=== PATIENT | female | born 1945 | race Caucasian/White ===

== ENCOUNTER → 2018-03-25 | Outpatient (CLI) | payer MEDICARE ==
[~2018-03-25] MED LIST: GADOBUTROL 7.5 MMOL/7.5 ML PFS ONE
== END | disposition home or self-care (01) ==
LOC: CFH 07:20
PROVIDERS: ATTEND Family Medicine
DX: G31.9 Degenerative disease of nervous system, unspecified (principal); I67.82 Cerebral ischemia
CPT/HCPCS: 70553; 82565; A9585

== ENCOUNTER 2018-07-04 18:41 | Inpatient (IN) | payer MEDICARE ==
[~2018-07-04] VITALS: Ht 152.4 cm; Wt 80.8 kg
--- NOTE | 2018-07-04 18:54 | NUR ---
BIB [facility] WITH C/O DARK TARRY STOOLS AND COFFEE GROUND EMESIS. STARTED TODAY. PT STATES SIMILAR EPISODE ABOUT A WEEK AGO. PT WITH HX OF HITAL HERNIA. PT DOES STATE SOME EPIGASTRIC PAIN. MILD AMOUNT OF DISTRESS NOTED. BREATHING REGULAR AND UNLABORED. AWAITING EVAL AND ORDERS. WILL CONTINUE TO MONITOR.
[2018-07-04] MEDS ORDERED: PANTOPRAZOLE 80 MG in SODIUM CHLORIDE 0.9% 50 ML IVPB ONE (19:03)
[2018-07-04] MEDS ORDERED: SODIUM CHLORIDE FLUSH 10ML SYR IVF ONE (19:30)
[2018-07-04] MEDS ORDERED: PLEASE ENTER ALLERGIES MC SCH (19:30)
[2018-07-04] MEDS ORDERED: MAALOX/HYOSCYAMINE/LIDOCAINE 45 ML BTL PO ONE (19:30)
[2018-07-04] MEDS ORDERED: ONDANSETRON 2MG/ML, 2ML IVPush ONE (19:30)
--- NOTE | 2018-07-04 19:31 | NUR ---
IV INFUSION STARTED PER JUL. RIGHTS VERIFIED PRIOR. 3 P'S ADDRESSED.
[2018-07-04] MEDS ORDERED: MAALOX/HYOSCYAMINE/LIDOCAINE 45 ML BTL ONE ×2 (19:32→19:33)
[2018-07-04] MEDS ORDERED: ONDANSETRON 2MG/ML, 2ML ONE (19:32)
[2018-07-04 19:34] LABS: BASOPHILS # (AUTO) 0.03 x10^3/uL (0-0.1); BASOPHILS % (AUTO) 0 % (0-1); EOSINOPHILS # (AUTO) 0.04 x10^3/uL (0-0.4); EOSINOPHILS % (AUTO) 0 % (1-7); LYMPHOCYTES # (AUTO) 0.94 x10^3/uL (1-3.4); LYMPHOCYTES % (AUTO) 9 % (22-44); MD NO; MEAN CORPUSCULAR HEMOGLOBIN 31.5 pg (27.0-34.8); MEAN CORPUSCULAR HGB CONC 33.8 g/dL (32.4-35.8); MEAN PLATELET VOLUME 8.7 fL (7.4-10.4); MONOCYTES # (AUTO) 0.23 x10^3/uL (0.2-0.8); MONOCYTES % (AUTO) 2 % (2-9); NEUTROPHILS # (AUTO) 9.01 x10^3/uL (1.8-6.8); NEUTROPHILS % (AUTO) 88 % (42-75); PLATELET COUNT 321 x10^3/uL (130-400); RED BLOOD COUNT 4.78 x10^6/uL (3.82-5.3)
[2018-07-04 19:40] LABS: INTERNATIONAL NORMALIZED RATIO 0.97 (0.93-1.1); PROTHROMBIN TIME 10.2 Seconds (9.6-11.5)
--- NOTE | 2018-07-04 19:41 | NUR ---
PT MEDICATED PER JUL. GI COCKTAIL HELD AT THIS TIME DUE TO PT FEELING LIKE SHE IS GOING TO VOMIT.
[2018-07-04 19:43] LABS: ALANINE AMINOTRANSFERASE 23 U/L (12-78); ALBUMIN 3.9 g/dL (3.4-5.0); ANION GAP 8 mmol/L (5-15); CHLORIDE 104 mmol/L (98-107); CREATININE 0.67 mg/dL (0.55-1.02)
[2018-07-04 19:45] LABS: ALKALINE PHOSPHATASE 89 U/L (45-117); BILIRUBIN,TOTAL 0.8 mg/dL (0.2-1.0); TOTAL PROTEIN 7.7 g/dL (6.4-8.2)
[2018-07-04] MEDS ORDERED: PANTOPRAZOLE 80 MG in SODIUM CHLORIDE 0.9% 100 ML IV SCH (19:45)
--- NOTE | 2018-07-04 20:15 | NUR ---
POC UPDATED WITH PT AND FAMILY. PT CONTINUES TO BE MILDLY NAUSEATED AT THIS TIME. AWAITING ROOM. WILL CONTINUE TO MONITOR.
--- NOTE | 2018-07-04 20:49 | NUR ---
PROTONIX DRIP REQUESTED FROM [facility] AND INDICATED TO BE SENT TO 4TH FLOOR.
--- NOTE | 2018-07-04 20:49 | NUR ---
REPORT TO LEONARDO SHAH.
[2018-07-04] MEDS: PANTOPRAZOLE 80 MG in SODIUM CHLORIDE 0.9% 100 ML IV SCH (21:00)
[2018-07-04] MEDS: SODIUM CHLORIDE 0.9% 1,000 ML IV SCH (21:29)
[2018-07-04] MEDS ORDERED: ONDANSETRON 2MG/ML, 2ML IVPush PRN (21:30)
[2018-07-04] MEDS ORDERED: ACETAMINOPHEN 325 MG TABLET PO PRN (21:30)
[2018-07-04] MEDS ORDERED: morphine SULFATE 10 MG/ML, 1ML IVPush PRN (21:30)
[2018-07-04] MEDS ORDERED: BISACODYL 10 MG SUPP PR PRN (21:30)
[2018-07-04 21:53] VITALS: BP 130/73
[2018-07-05 01:28] VITALS: BP 140/84
[2018-07-05] MEDS: SODIUM CHLORIDE 0.9% 1,000 ML IV SCH (05:26)
[2018-07-05 07:37] VITALS: BP 130/81
[2018-07-05 07:44] LABS: BASOPHILS # (AUTO) 0.04 x10^3/uL (0-0.1); BASOPHILS % (AUTO) 0 % (0-1); EOSINOPHILS % (AUTO) 0 % (1-7); LYMPHOCYTES % (AUTO) 12 % (22-44); MD NO; MEAN CORPUSCULAR HEMOGLOBIN 30.6 pg (27.0-34.8); MEAN CORPUSCULAR HGB CONC 32.7 g/dL (32.4-35.8); MEAN CORPUSCULAR VOLUME 93.6 fL (80-100); MEAN PLATELET VOLUME 8.3 fL (7.4-10.4); MONOCYTES % (AUTO) 3 % (2-9); NEUTROPHILS # (AUTO) 7.94 x10^3/uL (1.8-6.8); NEUTROPHILS % (AUTO) 85 % (42-75); PLATELET COUNT 325 x10^3/uL (130-400); RED BLOOD COUNT 4.48 x10^6/uL (3.82-5.3); RED CELL DISTRIBUTION WIDTH 15.2 % (9.6-15.2)
[2018-07-05 07:56] LABS: ALANINE AMINOTRANSFERASE 23 U/L (12-78); ALBUMIN 3.7 g/dL (3.4-5.0); ANION GAP 7 mmol/L (5-15); CALCIUM 8.7 mg/dL (8.5-10.1); CHLORIDE 104 mmol/L (98-107); CREATININE 0.78 mg/dL (0.55-1.02)
[2018-07-05 07:59] LABS: ALKALINE PHOSPHATASE 75 U/L (45-117); BILIRUBIN,TOTAL 0.9 mg/dL (0.2-1.0); TOTAL PROTEIN 7.3 g/dL (6.4-8.2)
[2018-07-05] MEDS: PANTOPRAZOLE 80 MG in SODIUM CHLORIDE 0.9% 100 ML IV SCH ×2 (08:23→21:42)
[2018-07-05] MEDS ORDERED: MIDAZOLAM 1 MG/ML, 5ML ONE (10:12)
[2018-07-05] MEDS ORDERED: FENTANYL PF 100 MCG/2ML ONE (10:12)
[2018-07-05 13:54] LABS: HEMOGRAM NOTE RECHECKED
[2018-07-05 14:47] VITALS: BP 113/84
[2018-07-05] MEDS: SODIUM CHLORIDE 0.45% 1,000 ML IV SCH (15:00)
[2018-07-05 18:41] VITALS: BP 138/67
[2018-07-06 02:02] VITALS: BP 108/59
[2018-07-06] MEDS: SODIUM CHLORIDE 0.45% 1,000 ML IV SCH ×2 (02:48→16:14)
[2018-07-06 04:56] LABS: ALBUMIN 3.2 g/dL (3.4-5.0); ANION GAP 5 mmol/L (5-15); CHLORIDE 104 mmol/L (98-107)
[2018-07-06 05:02] LABS: ALANINE AMINOTRANSFERASE 18 U/L (12-78); ALKALINE PHOSPHATASE 57 U/L (45-117); BILIRUBIN,TOTAL 1.4 mg/dL (0.2-1.0); CREATININE 0.56 mg/dL (0.55-1.02); TOTAL PROTEIN 5.9 g/dL (6.4-8.2)
[2018-07-06] MEDS ORDERED: POTASSIUM CHLORIDE 40 MEQ in SODIUM CHLORIDE 0.9% 500 ML IV ONE (07:30)
[2018-07-06 07:41] VITALS: BP 104/67
[2018-07-06] MEDS: PANTOPRAZOLE 80 MG in SODIUM CHLORIDE 0.9% 100 ML IV SCH ×2 (08:51→18:36)
[2018-07-06 13:27] VITALS: BP 108/69
[2018-07-06 19:21] LABS: BASOPHILS # (AUTO) 0.03 x10^3/uL (0-0.1); BASOPHILS % (AUTO) 0 % (0-1); EOSINOPHILS # (AUTO) 0.11 x10^3/uL (0-0.4); EOSINOPHILS % (AUTO) 1 % (1-7); LYMPHOCYTES # (AUTO) 2.65 x10^3/uL (1-3.4); LYMPHOCYTES % (AUTO) 32 % (22-44); MEAN CORPUSCULAR HEMOGLOBIN 31.6 pg (27.0-34.8); MEAN CORPUSCULAR HGB CONC 33.3 g/dL (32.4-35.8); MEAN CORPUSCULAR VOLUME 94.9 fL (80-100); MEAN PLATELET VOLUME 8.4 fL (7.4-10.4); MONOCYTES # (AUTO) 0.44 x10^3/uL (0.2-0.8); MONOCYTES % (AUTO) 5 % (2-9); NEUTROPHILS # (AUTO) 4.98 x10^3/uL (1.8-6.8); NEUTROPHILS % (AUTO) 61 % (42-75); PLATELET COUNT 229 x10^3/uL (130-400); RED BLOOD COUNT 3.13 x10^6/uL (3.82-5.3)
[2018-07-06 19:22] LABS: MD NO
[2018-07-06 21:24] VITALS: BP 115/69
[2018-07-06] MEDS: ATORVASTATIN 40 MG TABLET PO SCH (22:40)
[2018-07-06 22:55] VITALS: BP 127/76
[2018-07-07 01:53] VITALS: BP 104/60
[2018-07-07] MEDS: SODIUM CHLORIDE 0.45% 1,000 ML IV SCH ×2 (03:12→18:29)
[2018-07-07 03:51] LABS: ALANINE AMINOTRANSFERASE 17 U/L (12-78); ALBUMIN 2.8 g/dL (3.4-5.0); ANION GAP 5 mmol/L (5-15); CALCIUM 7.6 mg/dL (8.5-10.1); CHLORIDE 106 mmol/L (98-107); CHOLESTEROL, TOTAL 105 mg/dL (140-239); CREATININE 0.52 mg/dL (0.55-1.02)
[2018-07-07 03:55] LABS: ALKALINE PHOSPHATASE 51 U/L (45-117); BILIRUBIN,TOTAL 1.2 mg/dL (0.2-1.0); CHOL/HDL RATIO 2.5; HDL CHOL % 40 % (28-40); HDL CHOLESTEROL (DIRECT) 42 mg/dL (40-60); LDL CHOLESTEROL,CALCULATED 46 mg/dL (54-169); LDL/HDL RATIO 1.1 (0.5-3.0); TOTAL PROTEIN 5.2 g/dL (6.4-8.2); TRIGLYCERIDES 84 mg/dL (50-200); TROPONIN I 0.199 ng/mL (0.000-0.045); VLDL CHOLESTEROL 17 mg/dL (0-25)
[2018-07-07 04:10] LABS: BASOPHILS # (AUTO) 0.03 x10^3/uL (0-0.1); BASOPHILS % (AUTO) 0 % (0-1); EOSINOPHILS % (AUTO) 3 % (1-7); LYMPHOCYTES # (AUTO) 2.18 x10^3/uL (1-3.4); LYMPHOCYTES % (AUTO) 33 % (22-44); MD NO; MEAN CORPUSCULAR HEMOGLOBIN 31.1 pg (27.0-34.8); MEAN CORPUSCULAR HGB CONC 32.6 g/dL (32.4-35.8); MEAN CORPUSCULAR VOLUME 95.2 fL (80-100); MEAN PLATELET VOLUME 8.4 fL (7.4-10.4); MONOCYTES # (AUTO) 0.45 x10^3/uL (0.2-0.8); MONOCYTES % (AUTO) 7 % (2-9); NEUTROPHILS # (AUTO) 3.72 x10^3/uL (1.8-6.8); NEUTROPHILS % (AUTO) 57 % (42-75); PLATELET COUNT 216 x10^3/uL (130-400); RED BLOOD COUNT 2.99 x10^6/uL (3.82-5.3); RED CELL DISTRIBUTION WIDTH 14.4 % (9.6-15.2)
[2018-07-07 08:00] VITALS: BP 114/62
[2018-07-07 09:54] LABS: TROPONIN I 0.168 ng/mL (0.000-0.045)
[2018-07-07 14:21] VITALS: BP 118/67
[2018-07-07] MEDS: PANTOPRAZOLE 80 MG in SODIUM CHLORIDE 0.9% 100 ML IV SCH (18:26)
[2018-07-07 18:53] VITALS: BP 153/83
[2018-07-07] MEDS: ATORVASTATIN 40 MG TABLET PO SCH (20:45)
[2018-07-08 00:27] VITALS: BP 135/73
[2018-07-08] MEDS: PANTOPRAZOLE 80 MG in SODIUM CHLORIDE 0.9% 100 ML IV SCH ×2 (03:55→14:02)
[2018-07-08 04:39] LABS: BASOPHILS # (AUTO) 0.02 x10^3/uL (0-0.1); BASOPHILS % (AUTO) 0 % (0-1); EOSINOPHILS # (AUTO) 0.12 x10^3/uL (0-0.4); EOSINOPHILS % (AUTO) 2 % (1-7); LYMPHOCYTES # (AUTO) 1.53 x10^3/uL (1-3.4); LYMPHOCYTES % (AUTO) 27 % (22-44); MD NO; MEAN CORPUSCULAR HEMOGLOBIN 31.7 pg (27.0-34.8); MEAN CORPUSCULAR HGB CONC 33.7 g/dL (32.4-35.8); MEAN CORPUSCULAR VOLUME 94.1 fL (80-100); MEAN PLATELET VOLUME 8.4 fL (7.4-10.4); MONOCYTES # (AUTO) 0.38 x10^3/uL (0.2-0.8); MONOCYTES % (AUTO) 7 % (2-9); NEUTROPHILS % (AUTO) 64 % (42-75); PLATELET COUNT 221 x10^3/uL (130-400); RED BLOOD COUNT 3.07 x10^6/uL (3.82-5.3); RED CELL DISTRIBUTION WIDTH 14.3 % (9.6-15.2)
[2018-07-08 04:40] LABS: ALBUMIN 2.6 g/dL (3.4-5.0); ANION GAP 2 mmol/L (5-15); CALCIUM 7.4 mg/dL (8.5-10.1); CHLORIDE 106 mmol/L (98-107)
[2018-07-08 04:43] LABS: ALANINE AMINOTRANSFERASE 18 U/L (12-78); ALKALINE PHOSPHATASE 55 U/L (45-117); BILIRUBIN,TOTAL 1.5 mg/dL (0.2-1.0); CREATININE 0.44 mg/dL (0.55-1.02); TOTAL PROTEIN 5.1 g/dL (6.4-8.2)
[2018-07-08] MEDS: SODIUM CHLORIDE 0.45% 1,000 ML IV SCH (08:12)
[2018-07-08] MEDS ORDERED: REGADENOSON 0.4 MG/5 ML SYRINGE ONE (09:19)
[2018-07-08 11:11] VITALS: BP 134/78
[2018-07-08] MEDS: POTASSIUM CHLORIDE 20 MEQ TAB.ER.PRT PO SCH ×2 (11:16→17:04)
[2018-07-08 12:56] VITALS: BP 113/62
[2018-07-08] MEDS: CARVEDILOL 3.125 MG TABLET PO SCH (17:05)
[2018-07-08 18:56] VITALS: BP 115/75
[2018-07-08] MEDS: OMEPRAZOLE 20 MG CAPSULE.DR PO SCH (19:54)
[2018-07-08] MEDS: ATORVASTATIN 40 MG TABLET PO SCH (19:54)
[2018-07-09 01:17] VITALS: BP 127/84
[2018-07-09 04:15] LABS: BASOPHILS # (AUTO) 0.02 x10^3/uL (0-0.1); BASOPHILS % (AUTO) 0 % (0-1); EOSINOPHILS # (AUTO) 0.13 x10^3/uL (0-0.4); EOSINOPHILS % (AUTO) 2 % (1-7); LYMPHOCYTES # (AUTO) 1.73 x10^3/uL (1-3.4); LYMPHOCYTES % (AUTO) 30 % (22-44); MD NO; MEAN CORPUSCULAR HEMOGLOBIN 30.8 pg (27.0-34.8); MEAN CORPUSCULAR HGB CONC 32.3 g/dL (32.4-35.8); MEAN CORPUSCULAR VOLUME 95.2 fL (80-100); MEAN PLATELET VOLUME 8.4 fL (7.4-10.4); MONOCYTES # (AUTO) 0.44 x10^3/uL (0.2-0.8); MONOCYTES % (AUTO) 8 % (2-9); NEUTROPHILS # (AUTO) 3.54 x10^3/uL (1.8-6.8); NEUTROPHILS % (AUTO) 61 % (42-75); PLATELET COUNT 253 x10^3/uL (130-400); RED BLOOD COUNT 3.28 x10^6/uL (3.82-5.3); RED CELL DISTRIBUTION WIDTH 14.4 % (9.6-15.2)
[2018-07-09 04:21] LABS: CALCIUM 8.2 mg/dL (8.5-10.1); CHLORIDE 107 mmol/L (98-107)
[2018-07-09 04:27] LABS: ALANINE AMINOTRANSFERASE 19 U/L (12-78); ALBUMIN 2.8 g/dL (3.4-5.0); ALKALINE PHOSPHATASE 56 U/L (45-117); ANION GAP 2 mmol/L (5-15); BILIRUBIN,TOTAL 1.2 mg/dL (0.2-1.0); CREATININE 0.56 mg/dL (0.55-1.02); TOTAL PROTEIN 5.5 g/dL (6.4-8.2)
[2018-07-09 05:50] VITALS: BP 124/68
[2018-07-09] MEDS: CARVEDILOL 3.125 MG TABLET PO SCH (05:53)
[2018-07-09] MEDS: OMEPRAZOLE 20 MG CAPSULE.DR PO SCH (06:02)
[2018-07-09] MEDS: POTASSIUM CHLORIDE 20 MEQ TAB.ER.PRT PO SCH (08:25)
[2018-07-09] MEDS ORDERED: LISINOPRIL 5 MG TABLET PO SCH (09:00)
[2018-07-09] MEDS ORDERED: LISI5TAB7 PO (11:59)
[2018-07-09] MEDS ORDERED: ATOR40TA78 PO (11:59)
[2018-07-09] MEDS ORDERED: CARV3.1212 PO (11:59)
[2018-07-09] MEDS ORDERED: OMEP-110 PO (11:59)
[2018-07-09] MEDS ORDERED: ASPI81TA45 PO (12:02)
== END 2018-07-09 15:34 | disposition home or self-care (01) | DRG 377 ==
LOC: ED 19:36 → EDIP 20:09 → 4NOR 21:10 → 4WST 07-05 08:42 → DCLOUNGE 07-09 14:55
PROVIDERS: ADMIT Internal Medicine; ATTEND Hospitalist
PROC: 0DJ08ZZ Inspection of Upper Intestinal Tract, Via Natural or Artificial Opening Endoscopic (ICD-10-PCS; principal; 2018-07-05 10:30)
DX: K92.2 Gastrointestinal hemorrhage, unspecified (principal); J96.21 Acute and chronic respiratory failure with hypoxia; E87.0 Hyperosmolality and hypernatremia; G45.9 Transient cerebral ischemic attack, unspecified; D64.9 Anemia, unspecified; E11.9 Type 2 diabetes mellitus without complications; E86.0 Dehydration; E87.6 Hypokalemia; E88.09 Other disorders of plasma-protein metabolism, not elsewhere classified; R47.81 Slurred speech; J45.909 Unspecified asthma, uncomplicated; I10 Essential (primary) hypertension; K44.9 Diaphragmatic hernia without obstruction or gangrene; Z86.73 Personal history of transient ischemic attack (TIA), and cerebral infarction without residual deficits; Z90.710 Acquired absence of both cervix and uterus; Z87.891 Personal history of nicotine dependence; Z88.0 Allergy status to penicillin
CPT/HCPCS: 0399T; 36415; 70450; 70551; 71250; 74176; 78452; 80053; 80061; 82962; 83605; 83690; 84484; 85014; 85018; 85025; 85610; 86677; 86850; 86900; 93005; 93017; 93306; 93880; 96365; 99152; 99153; 99285; G0378; J2250; J2405; J2785; J3010; J3480; A9502; C9113; C9898; J7030; J7040

== ENCOUNTER 2018-08-07 19:06 | Emergency (ER) | payer MEDICARE ==
[~2018-08-07] VITALS: Ht 152.4 cm; Wt 152.0 kg
[~2018-08-07 19:06] MED LIST changes: +ASPI81TA45 PO; +ATOR40TA78 PO; +CARV3.1212 PO; -GADOBUTROL 7.5 MMOL/7.5 ML PFS ONE; +LISI5TAB7 PO; +OMEP-110 PO
--- NOTE | 2018-08-07 19:32 | NUR ---
PT ARRIVED WITH SON. PER SON PT WENT OUT TO EAT FOR DINNER 3 DAYS AGO. HAS BEEN FEELING NAUSEATED SINCE WITH VOMITING AND FATIGUE. HAS BEEN ABLE TO KEEP LIQUIDS AND SOFT FOODS DOWN. FENG ATE 2 PIECES OF FRUIT AND IS NOW HAVING PAIN TO HER UPPER ABDOMEN WHERE HER HERNIA IS.
[2018-08-07] MEDS ORDERED: ONDANSETRON 2MG/ML, 2ML IVPush ONE (20:00)
[2018-08-07] MEDS ORDERED: ONDANSETRON 2MG/ML, 2ML ONE (20:03)
--- NOTE | 2018-08-07 20:08 | NUR ---
REPORT RECEIVED FROM LEONARDO RIZO. ALL MONITORS PLACED, PT WEARING OXYGEN AT 2L/MIN VIA NC. PT MEDICATED PER EMAR, TOLERATED WELL. CALL LIGHT IN REACH. AWAITING LAB AND XRAY RESULTS AT THIS TIME.
[2018-08-07 20:12] LABS: BASOPHILS # (AUTO) 0.03 x10^3/uL (0-0.1); BASOPHILS % (AUTO) 1 % (0-1); EOSINOPHILS # (AUTO) 0.17 x10^3/uL (0-0.4); EOSINOPHILS % (AUTO) 2 % (1-7); LYMPHOCYTES # (AUTO) 1.72 x10^3/uL (1-3.4); LYMPHOCYTES % (AUTO) 24 % (22-44); MD NO; MEAN CORPUSCULAR HEMOGLOBIN 29.8 pg (27.0-34.8); MEAN CORPUSCULAR VOLUME 90.3 fL (80-100); MEAN PLATELET VOLUME 8.8 fL (7.4-10.4); MONOCYTES # (AUTO) 0.57 x10^3/uL (0.2-0.8); MONOCYTES % (AUTO) 8 % (2-9); NEUTROPHILS # (AUTO) 4.67 x10^3/uL (1.8-6.8); NEUTROPHILS % (AUTO) 65 % (42-75); PLATELET COUNT 302 x10^3/uL (130-400); RED BLOOD COUNT 4.41 x10^6/uL (3.82-5.3); RED CELL DISTRIBUTION WIDTH 14.1 % (9.6-15.2)
[2018-08-07 20:19] LABS: INTERNATIONAL NORMALIZED RATIO 0.96 (0.93-1.1); PROTHROMBIN TIME 10.1 Seconds (9.6-11.5)
[2018-08-07 20:21] LABS: ALANINE AMINOTRANSFERASE 19 U/L (12-78); ALBUMIN 3.6 g/dL (3.4-5.0); ANION GAP 7 mmol/L (5-15); CALCIUM 8.8 mg/dL (8.5-10.1); CHLORIDE 104 mmol/L (98-107); CREATININE 0.71 mg/dL (0.55-1.02)
[2018-08-07 20:25] LABS: ALKALINE PHOSPHATASE 90 U/L (45-117); BILIRUBIN,TOTAL 0.8 mg/dL (0.2-1.0); TOTAL PROTEIN 7.4 g/dL (6.4-8.2); TROPONIN I < 0.015 ng/mL (0.000-0.045)
[2018-08-07 21:28] VITALS: BP 102/72
--- NOTE | 2018-08-07 21:45 | NUR ---
oxygen turned off, pt initially sat's >90% on room air but after several minutes on room air pt's spo2 dropped to 82%. pt denies sob. COURTNEY Rogers notified. pt does not have home oxygen but states her PCP has noted low oxygen levels in the past. Pt to have ambulatory spo2 test.
--- NOTE | 2018-08-07 21:53 | NUR ---
PT BEDSIDE REPORT FROM ISAIAH RN. THIS RN TO ASSUME CARE OF PT. THIS RN TO ROAD TEST AND MONITOR O2 SATURATION.
--- NOTE | 2018-08-07 21:54 | NUR ---
report given to LEONARDO Forman at bedside.
--- NOTE | 2018-08-07 22:20 | NUR ---
PT SUCCESSFUL ON ROAD TEST. ACHIEVED 91-93% SAT ON RA. PA ON BOARD. PT D/C AT THIS TIME.
== END 2018-08-07 22:22 | disposition home or self-care (01) ==
LOC: ED 21:53
DX: K59.00 Constipation, unspecified (principal); R53.83 Other fatigue; E11.9 Type 2 diabetes mellitus without complications; I10 Essential (primary) hypertension
CPT/HCPCS: 36415; 74022; 80053; 83690; 83880; 84484; 85025; 85610; 85730; 86850; 86900; 93005; 96374; 99284; J2405

== ENCOUNTER 2018-08-08 08:32 | Inpatient (IN) | payer MEDICARE ==
[~2018-08-08] VITALS: Ht 152.4 cm; Wt 73.0 kg
[2018-08-08] MEDS ORDERED: PANTOPRAZOLE 80 MG in SODIUM CHLORIDE 0.9% 50 ML IVPB ONE (09:02)
[2018-08-08 09:29] LABS: MEAN CORPUSCULAR HEMOGLOBIN 28.8 pg (27.0-34.8); MEAN CORPUSCULAR HGB CONC 31.8 g/dL (32.4-35.8); MEAN CORPUSCULAR VOLUME 90.5 fL (80-100); MEAN PLATELET VOLUME 8.9 fL (7.4-10.4); PLATELET COUNT 334 x10^3/uL (130-400); RED BLOOD COUNT 4.43 x10^6/uL (3.82-5.3); RED CELL DISTRIBUTION WIDTH 14.2 % (9.6-15.2)
[2018-08-08] MEDS ORDERED: SODIUM CHLORIDE FLUSH 10ML SYR IVF ONE (09:30)
[2018-08-08] MEDS ORDERED: SODIUM CHLORIDE 0.9% 1,000ML IVBOLUS ONE (09:30)
[2018-08-08] MEDS ORDERED: ONDANSETRON 2MG/ML, 2ML IVPush ONE (09:30)
--- NOTE | 2018-08-08 09:30 | NUR ---
CT WAITING ON LABS ORDERED TODAY.
--- NOTE | 2018-08-08 09:30 | NUR ---
Pt RA SPO2 of 84%. Checked at multiple different sites with good waveform. Denies SOB, placed on 2 liters oxygen & now is 95%, Dr. Quinteros informed.
[2018-08-08 09:36] LABS: INTERNATIONAL NORMALIZED RATIO 1.01 (0.93-1.1); PROTHROMBIN TIME 10.6 Seconds (9.6-11.5)
[2018-08-08 09:37] LABS: ALBUMIN 3.7 g/dL (3.4-5.0); ANION GAP 8 mmol/L (5-15); CALCIUM 9.5 mg/dL (8.5-10.1); CHLORIDE 100 mmol/L (98-107)
[2018-08-08 09:40] LABS: ALANINE AMINOTRANSFERASE 16 U/L (12-78); ALKALINE PHOSPHATASE 90 U/L (45-117); BILIRUBIN,TOTAL 0.8 mg/dL (0.2-1.0); TOTAL PROTEIN 7.5 g/dL (6.4-8.2)
[2018-08-08] MEDS ORDERED: ONDANSETRON 2MG/ML, 2ML ONE (09:47)
[2018-08-08] MEDS ORDERED: OMNIPAQUE 350 MG/ML, 100ML BOTTLE ONE (10:09)
[2018-08-08 10:10] LABS: TROPONIN I < 0.015 ng/mL (0.000-0.045)
[2018-08-08 10:27] LABS: BASOPHILS # (AUTO) 0.04 x10^3/uL (0-0.1); BASOPHILS % (AUTO) 0 % (0-1); EOSINOPHILS % (AUTO) 0 % (1-7); LYMPHOCYTES # (AUTO) 1.74 x10^3/uL (1-3.4); LYMPHOCYTES % (AUTO) 13 % (22-44); MD NO; MONOCYTES # (AUTO) 0.66 x10^3/uL (0.2-0.8); MONOCYTES % (AUTO) 5 % (2-9); NEUTROPHILS # (AUTO) 10.92 x10^3/uL (1.8-6.8); NEUTROPHILS % (AUTO) 82 % (42-75)
[2018-08-08] MEDS ORDERED: PHENYLEPHRINE 10 MG/ML ONE (10:48)
[2018-08-08] MEDS ORDERED: DEXAMETHASONE 4 MG/ML, 1ML ONE (10:48)
[2018-08-08] MEDS: PANTOPRAZOLE 80 MG in SODIUM CHLORIDE 0.9% 100 ML IV SCH ×2 (10:53→19:02)
--- NOTE | 2018-08-08 10:55 | NUR ---
+Nausea. Medicated as per emar with Zofran.
--- NOTE | 2018-08-08 11:24 | NUR ---
Nausea not improved, no vomiting. OOB to restroom but forgot and did not void in urine cup provided.
--- NOTE | 2018-08-08 11:40 | NUR ---
RA SPO2 checked. Pt 77% on RA with good waveform while denying any CP or SOB. Dr. Quinteros updated & POC to admit pt. D/W pt & agrees to have straight cath UA.
[2018-08-08] MEDS ORDERED: METOCLOPRAMIDE 5 MG/ML, 2ML IVPush ONE (12:00)
--- NOTE | 2018-08-08 12:04 | NUR ---
Pt TBADM for bowel obstruction. Remains NPO & is aware of POC. Son called & updated.
--- NOTE | 2018-08-08 12:54 | NUR ---
Report to [facility] pre-op, pt scheduled for surgery at 1315. Pt & son informed. Pt undressed completely except for gown with jewelry given to son to take home. Hospitalist @ [facility]. Pt pain free, nausea improved, remains NPO. VSS on 2 liters oxygen.
[2018-08-08] MEDS ORDERED: FENTANYL PF 250 MCG/5ML ONE (13:04)
[2018-08-08] MEDS ORDERED: MIDAZOLAM 1 MG/ML, 2ML ONE (13:04)
[2018-08-08] MEDS ORDERED: PROMETHAZINE 25 MG/ML, 1ML ONE (13:09)
[2018-08-08] MEDS ORDERED: KETAMINE 10 MG/ML, 20ML ONE (13:11)
[2018-08-08] MEDS ORDERED: DEXMEDETOMIDINE 200 MCG/2 ML ONE (13:11)
[2018-08-08] MEDS ORDERED: GLUCAGON 1 MG IM PRN (13:30)
[2018-08-08] MEDS ORDERED: DEXTROSE 50%, 50ML SYRINGE IVPush PRN (13:30)
[2018-08-08] MEDS ORDERED: morphine SULFATE 10 MG/ML, 1ML IVPush PRN (13:30)
[2018-08-08] MEDS ORDERED: hydrALAzine 20 MG/ML, 1ML IVPush PRN (13:30)
[2018-08-08] MEDS ORDERED: ENALAPRILAT 1.25 MG/ML, 2ML IVPush PRN (13:30)
[2018-08-08] MEDS ORDERED: ACETAMINOPHEN 325 MG TABLET PO PRN (13:30)
[2018-08-08] MEDS ORDERED: DEXTROSE 4 GM TAB.CHEW PO PRN (13:30)
[2018-08-08 14:00] LABS: FREE T4 (FREE THYROXINE) 1.31 ng/dL (0.76-1.46); THYROID STIMULATING HORMONE 1.94 mIU/L (0.358-3.740)
[2018-08-08 14:07] LABS: HEMOGLOBIN A1C 6.6 % (4.2-6.3)
[2018-08-08] MEDS ORDERED: MEPERIDINE/PF 100 MG/ML ONE (14:19)
[2018-08-08] MEDS ORDERED: SUCCINYLCHOLINE 20 MG/ML, 10ML ONE (14:20)
[2018-08-08] MEDS ORDERED: ROCURONIUM 10MG/ML,5ML ONE (14:20)
[2018-08-08] MEDS ORDERED: CEFOTETAN PMX 2GM/50ML 50 ML ONE (14:20)
[2018-08-08] MEDS ORDERED: PROPOFOL 10 MG/ML, 20ML ONE (14:20)
[2018-08-08] MEDS ORDERED: ALBUTEROL/IPRATROPIUM 2.5MG/0.5MG, 3 ML NPPB PRN (14:30)
[2018-08-08] MEDS ORDERED: PROMETHAZINE 25 MG/ML, 1ML IV PRN (14:30)
[2018-08-08] MEDS ORDERED: hydrALAzine 20 MG/ML, 1ML IV PRN (14:30)
[2018-08-08] MEDS ORDERED: MEPERIDINE/PF 25MG/0.5ML IVPush PRN (14:30)
[2018-08-08] MEDS ORDERED: OXYcodone 5 MG/5 ML ORAL.SOL UDC PO PRN (14:30)
[2018-08-08] MEDS ORDERED: HALOPERIDOL 5 MG/ML IV PRN (14:30)
[2018-08-08] MEDS ORDERED: SUGAMMADEX 200 MG/2 ML IVPush ONE (15:38)
[2018-08-08] MEDS: INSULIN LISPRO 100 UNITS/ML, PEN SQ-INSULIN SCH ×3 (16:00→21:08)
[2018-08-08] MEDS ORDERED: FENTANYL PF 100 MCG/2ML ONE (16:57)
[2018-08-08] MEDS ORDERED: HYDROmorphone 2 MG/ML, 1ML ONE (16:57)
[2018-08-08] MEDS: HYDROmorphone 2 MG/ML, 1ML IVPush PRN ×3 (17:05→17:52)
[2018-08-08] MEDS: FENTANYL PF 100 MCG/2ML IV PRN ×2 (17:05→17:49)
[2018-08-08] MEDS ORDERED: HALOPERIDOL 5 MG/ML ONE (17:18)
[2018-08-08] MEDS: SODIUM CHLORIDE 0.9% 1,000 ML IV SCH ×2 (21:10→23:06)
[2018-08-08] MEDS: ATORVASTATIN 40 MG TABLET PO SCH (21:27)
[2018-08-08] MEDS: PANTOPRAZOLE 40 MG IV IVPush SCH (21:27)
[2018-08-08] MEDS: CARVEDILOL 3.125 MG TABLET PO SCH (21:27)
[2018-08-08] MEDS: FAMOTIDINE 20 MG/2 ML IVPush SCH (21:30)
[2018-08-08] MEDS ORDERED: ONDANSETRON 2MG/ML, 2ML IV PRN (21:30)
[2018-08-08] MEDS ORDERED: MORPHINE SULFATE 4 MG/ML, 1ML IV PRN (21:30)
[2018-08-08] MEDS ORDERED: D5%-0.45NACL+KCL 20MEQ 1,000 ML IV SCH (21:30)
[2018-08-08] MEDS: SODIUM CHLORIDE FLUSH 10ML SYR IVF SCH (22:38)
[2018-08-09 01:11] VITALS: BP 119/67
[2018-08-09 02:21] LABS: MICROSCOPIC AUTO
[2018-08-09 02:22] LABS: CULTURE INDICATED? NO
[2018-08-09] MEDS: SODIUM CHLORIDE 0.9% 1,000 ML IV SCH (04:02)
[2018-08-09] MEDS: CARVEDILOL 3.125 MG TABLET PO SCH ×2 (05:33→17:22)
[2018-08-09 06:02] LABS: BASOPHILS # (AUTO) 0.02 x10^3/uL (0-0.1); BASOPHILS % (AUTO) 0 % (0-1); EOSINOPHILS % (AUTO) 0 % (1-7); LYMPHOCYTES # (AUTO) 1.21 x10^3/uL (1-3.4); LYMPHOCYTES % (AUTO) 8 % (22-44); MD NO; MEAN CORPUSCULAR HEMOGLOBIN 30.1 pg (27.0-34.8); MEAN CORPUSCULAR HGB CONC 32.9 g/dL (32.4-35.8); MEAN CORPUSCULAR VOLUME 91.4 fL (80-100); MEAN PLATELET VOLUME 8.9 fL (7.4-10.4); MONOCYTES % (AUTO) 6 % (2-9); NEUTROPHILS % (AUTO) 86 % (42-75); PLATELET COUNT 308 x10^3/uL (130-400); RED BLOOD COUNT 3.95 x10^6/uL (3.82-5.3); RED CELL DISTRIBUTION WIDTH 14.4 % (9.6-15.2)
[2018-08-09 06:17] LABS: CHLORIDE 107 mmol/L (98-107)
[2018-08-09 06:30] LABS: ALANINE AMINOTRANSFERASE 57 U/L (12-78); ALBUMIN 2.9 g/dL (3.4-5.0); ALKALINE PHOSPHATASE 70 U/L (45-117); ANION GAP 5 mmol/L (5-15); BILIRUBIN,TOTAL 0.9 mg/dL (0.2-1.0); CHOLESTEROL, TOTAL 113 mg/dL (140-239); CREATININE 0.81 mg/dL (0.55-1.02); HDL CHOL % 50 % (28-40); HDL CHOLESTEROL (DIRECT) 56 mg/dL (40-60); LDL CHOLESTEROL,CALCULATED 47 mg/dL (54-169); LDL/HDL RATIO 0.8 (0.5-3.0); TOTAL PROTEIN 6.3 g/dL (6.4-8.2); TRIGLYCERIDES 50 mg/dL (50-200); VLDL CHOLESTEROL 10 mg/dL (0-25)
[2018-08-09 06:53] VITALS: BP 144/84
[2018-08-09] MEDS: INSULIN LISPRO 100 UNITS/ML, PEN SQ-INSULIN SCH ×4 (07:00→19:42)
[2018-08-09] MEDS: FAMOTIDINE 20 MG/2 ML IVPush SCH (08:12)
[2018-08-09] MEDS: PANTOPRAZOLE 40 MG IV IVPush SCH ×2 (09:48→21:16)
[2018-08-09] MEDS: LISINOPRIL 5 MG TABLET PO SCH (09:48)
[2018-08-09] MEDS: SODIUM CHLORIDE FLUSH 10ML SYR IVF SCH ×2 (09:48→21:16)
[2018-08-09] MEDS: POTASSIUM CHLORIDE 20 MEQ in SODIUM CHLORIDE 0.45% 1,000 ML IV SCH (12:31)
[2018-08-09] MEDS: ENOXAPARIN 30 MG/0.3 ML SQ SCH (12:33)
[2018-08-09 13:09] VITALS: BP 106/63
[2018-08-09 17:22] VITALS: BP 125/77
[2018-08-09 19:17] VITALS: BP 114/68
[2018-08-09] MEDS: ATORVASTATIN 40 MG TABLET PO SCH (21:00)
[2018-08-10 00:02] VITALS: BP 131/72
[2018-08-10] MEDS: POTASSIUM CHLORIDE 20 MEQ in SODIUM CHLORIDE 0.45% 1,000 ML IV SCH ×3 (00:18→21:53)
[2018-08-10] MEDS: ENOXAPARIN 30 MG/0.3 ML SQ SCH ×2 (00:20→12:51)
[2018-08-10 06:14] VITALS: BP 122/73
[2018-08-10] MEDS: CARVEDILOL 3.125 MG TABLET PO SCH ×2 (06:16→18:31)
[2018-08-10 07:25] LABS: ANION GAP 4 mmol/L (5-15); CALCIUM 8.3 mg/dL (8.5-10.1); CHLORIDE 105 mmol/L (98-107); CREATININE 0.47 mg/dL (0.55-1.02)
[2018-08-10 07:32] LABS: MEAN CORPUSCULAR HGB CONC 31.8 g/dL (32.4-35.8); MEAN CORPUSCULAR VOLUME 91.3 fL (80-100); PLATELET COUNT 266 x10^3/uL (130-400); RED BLOOD COUNT 3.36 x10^6/uL (3.82-5.3); RED CELL DISTRIBUTION WIDTH 14.4 % (9.6-15.2)
[2018-08-10 07:50] LABS: BASOPHILS # (AUTO) 0.03 x10^3/uL (0-0.1); BASOPHILS % (AUTO) 0 % (0-1); EOSINOPHILS # (AUTO) 0.12 x10^3/uL (0-0.4); EOSINOPHILS % (AUTO) 1 % (1-7); LYMPHOCYTES % (AUTO) 13 % (22-44); MD SCAN; MONOCYTES # (AUTO) 0.65 x10^3/uL (0.2-0.8); MONOCYTES % (AUTO) 6 % (2-9); NEUTROPHILS # (AUTO) 8.96 x10^3/uL (1.8-6.8); NEUTROPHILS % (AUTO) 80 % (42-75)
[2018-08-10 08:01] VITALS: BP 138/82
[2018-08-10] MEDS: INSULIN LISPRO 100 UNITS/ML, PEN SQ-INSULIN SCH ×4 (08:37→20:05)
[2018-08-10] MEDS: PANTOPRAZOLE 40 MG IV IVPush SCH ×2 (12:15→20:20)
[2018-08-10] MEDS: SODIUM CHLORIDE FLUSH 10ML SYR IVF SCH ×2 (12:15→20:20)
[2018-08-10] MEDS: LISINOPRIL 5 MG TABLET PO SCH (12:16)
[2018-08-10 14:24] VITALS: BP 134/79
[2018-08-10] MEDS ORDERED: OMNIPAQUE 350 MG/ML, 100ML BOTTLE ONE (15:26)
[2018-08-10] MEDS: ALBUTEROL SULFATE 2.5 MG/3 ML NPPB PRN (16:14)
[2018-08-10 19:26] VITALS: BP 122/74
[2018-08-10] MEDS: ATORVASTATIN 40 MG TABLET PO SCH (20:20)
[2018-08-11 00:52] VITALS: BP 108/68
[2018-08-11] MEDS: ENOXAPARIN 30 MG/0.3 ML SQ SCH ×2 (02:10→13:48)
[2018-08-11 05:50] LABS: ALBUMIN 2.5 g/dL (3.4-5.0); ANION GAP 6 mmol/L (5-15); CALCIUM 8.3 mg/dL (8.5-10.1); CHLORIDE 101 mmol/L (98-107)
[2018-08-11 05:53] LABS: CREATININE 0.43 mg/dL (0.55-1.02)
[2018-08-11 06:59] VITALS: BP 146/77
[2018-08-11] MEDS: INSULIN LISPRO 100 UNITS/ML, PEN SQ-INSULIN SCH ×4 (09:07→20:58)
[2018-08-11] MEDS: ALBUTEROL SULFATE 2.5 MG/3 ML NPPB PRN ×2 (10:16→15:44)
[2018-08-11] MEDS: PANTOPRAZOLE 40 MG IV IVPush SCH ×2 (10:48→20:58)
[2018-08-11] MEDS: methylPREDNISolone SOD SUCC 40 MG/ML IV SCH ×2 (10:48→18:03)
[2018-08-11] MEDS: LISINOPRIL 5 MG TABLET PO SCH (10:49)
[2018-08-11] MEDS: CARVEDILOL 3.125 MG TABLET PO SCH ×2 (10:49→18:04)
[2018-08-11] MEDS: SODIUM CHLORIDE FLUSH 10ML SYR IVF SCH ×2 (10:51→20:59)
[2018-08-11 13:51] VITALS: BP 118/63
[2018-08-11 14:31] VITALS: BP 114/75
[2018-08-11] MEDS: ATORVASTATIN 40 MG TABLET PO SCH (20:57)
[2018-08-11 21:30] VITALS: BP 139/76
[2018-08-12] MEDS: methylPREDNISolone SOD SUCC 40 MG/ML IV SCH ×3 (00:43→17:30)
[2018-08-12] MEDS: ENOXAPARIN 30 MG/0.3 ML SQ SCH ×3 (00:44→23:59)
[2018-08-12] MEDS: ALBUTEROL SULFATE 2.5 MG/3 ML NPPB PRN ×2 (02:32→11:02)
[2018-08-12 02:35] VITALS: BP 126/77
[2018-08-12 06:28] LABS: BASOPHILS # (AUTO) 0.01 x10^3/uL (0-0.1); BASOPHILS % (AUTO) 0 % (0-1); EOSINOPHILS % (AUTO) 0 % (1-7); LYMPHOCYTES # (AUTO) 0.59 x10^3/uL (1-3.4); LYMPHOCYTES % (AUTO) 10 % (22-44); MD NO; MEAN CORPUSCULAR HEMOGLOBIN 29.8 pg (27.0-34.8); MEAN CORPUSCULAR HGB CONC 32.7 g/dL (32.4-35.8); MEAN CORPUSCULAR VOLUME 91.2 fL (80-100); MEAN PLATELET VOLUME 8.7 fL (7.4-10.4); MONOCYTES # (AUTO) 0.07 x10^3/uL (0.2-0.8); MONOCYTES % (AUTO) 1 % (2-9); NEUTROPHILS # (AUTO) 5.15 x10^3/uL (1.8-6.8); NEUTROPHILS % (AUTO) 89 % (42-75); PLATELET COUNT 311 x10^3/uL (130-400); RED BLOOD COUNT 3.49 x10^6/uL (3.82-5.3); RED CELL DISTRIBUTION WIDTH 14.2 % (9.6-15.2)
[2018-08-12 06:35] LABS: ALBUMIN 2.4 g/dL (3.4-5.0); ANION GAP 5 mmol/L (5-15); CALCIUM 8.8 mg/dL (8.5-10.1); CHLORIDE 103 mmol/L (98-107); CREATININE 0.48 mg/dL (0.55-1.02)
[2018-08-12 08:08] VITALS: BP 130/72
[2018-08-12] MEDS: LISINOPRIL 5 MG TABLET PO SCH (10:08)
[2018-08-12] MEDS: CARVEDILOL 3.125 MG TABLET PO SCH ×2 (10:09→17:25)
[2018-08-12] MEDS: PANTOPRAZOLE 40 MG IV IVPush SCH (10:16)
[2018-08-12] MEDS: SODIUM CHLORIDE FLUSH 10ML SYR IVF SCH ×2 (10:19→21:26)
[2018-08-12] MEDS: INSULIN LISPRO 100 UNITS/ML, PEN SQ-INSULIN SCH ×4 (10:20→21:26)
[2018-08-12] MEDS ORDERED: BISACODYL 10 MG SUPP PR PRN ×2 (12:00→18:30)
[2018-08-12] MEDS ORDERED: OXYcodone/APAP 5/325MG TABLET PO PRN (12:00)
[2018-08-12 12:45] VITALS: BP 128/73
[2018-08-12] MEDS: PANTOPRAZOLE 20MG TABLET PO SCH (17:26)
[2018-08-12 18:41] VITALS: BP 134/77
[2018-08-12] MEDS: ATORVASTATIN 40 MG TABLET PO SCH (21:25)
[2018-08-13 00:35] VITALS: BP 125/74
[2018-08-13] MEDS: ALBUTEROL SULFATE 2.5 MG/3 ML NPPB PRN ×4 (03:03→23:00)
[2018-08-13 05:22] LABS: BASOPHILS % (AUTO) 0 % (0-1); EOSINOPHILS % (AUTO) 0 % (1-7); LYMPHOCYTES # (AUTO) 0.59 x10^3/uL (1-3.4); LYMPHOCYTES % (AUTO) 5 % (22-44); MD NO; MEAN CORPUSCULAR HEMOGLOBIN 29.5 pg (27.0-34.8); MEAN CORPUSCULAR HGB CONC 32.9 g/dL (32.4-35.8); MEAN CORPUSCULAR VOLUME 89.7 fL (80-100); MEAN PLATELET VOLUME 8.7 fL (7.4-10.4); MONOCYTES # (AUTO) 0.18 x10^3/uL (0.2-0.8); MONOCYTES % (AUTO) 2 % (2-9); NEUTROPHILS # (AUTO) 10.96 x10^3/uL (1.8-6.8); NEUTROPHILS % (AUTO) 94 % (42-75); PLATELET COUNT 345 x10^3/uL (130-400); RED BLOOD COUNT 3.41 x10^6/uL (3.82-5.3); RED CELL DISTRIBUTION WIDTH 14.2 % (9.6-15.2)
[2018-08-13 05:25] LABS: ALBUMIN 2.5 g/dL (3.4-5.0); ANION GAP 4 mmol/L (5-15); CALCIUM 8.5 mg/dL (8.5-10.1); CHLORIDE 103 mmol/L (98-107)
[2018-08-13 05:30] LABS: ALANINE AMINOTRANSFERASE 25 U/L (12-78); ALKALINE PHOSPHATASE 56 U/L (45-117); BILIRUBIN,TOTAL 0.8 mg/dL (0.2-1.0); CREATININE 0.58 mg/dL (0.55-1.02); TOTAL PROTEIN 5.9 g/dL (6.4-8.2)
[2018-08-13] MEDS: CARVEDILOL 3.125 MG TABLET PO SCH ×2 (05:52→17:41)
[2018-08-13] MEDS: PANTOPRAZOLE 20MG TABLET PO SCH ×2 (05:52→17:41)
[2018-08-13 07:50] VITALS: BP 135/82
[2018-08-13] MEDS: LISINOPRIL 5 MG TABLET PO SCH (09:46)
[2018-08-13] MEDS: methylPREDNISolone SOD SUCC 40 MG/ML IV SCH ×2 (09:46)
[2018-08-13] MEDS: INSULIN LISPRO 100 UNITS/ML, PEN SQ-INSULIN SCH ×4 (09:47→21:14)
[2018-08-13] MEDS: SODIUM CHLORIDE FLUSH 10ML SYR IVF SCH ×2 (09:48→21:14)
[2018-08-13] MEDS: ENOXAPARIN 30 MG/0.3 ML SQ SCH (11:57)
[2018-08-13 13:37] VITALS: BP 148/81
[2018-08-13 16:49] LABS: MICROSCOPIC NOT IND
[2018-08-13] MEDS: predniSONE 50MG TABLET PO SCH (17:41)
[2018-08-13 18:30] VITALS: BP 137/75
[2018-08-13] MEDS: ATORVASTATIN 40 MG TABLET PO SCH (21:14)
[2018-08-14] MEDS: ENOXAPARIN 30 MG/0.3 ML SQ SCH ×2 (00:10→11:25)
[2018-08-14 01:08] VITALS: BP 133/71
[2018-08-14 05:29] VITALS: BP 153/78
[2018-08-14] MEDS: CARVEDILOL 3.125 MG TABLET PO SCH ×2 (05:31→18:00)
[2018-08-14] MEDS: PANTOPRAZOLE 20MG TABLET PO SCH ×2 (05:31→16:22)
[2018-08-14 07:46] VITALS: BP 153/87
[2018-08-14] MEDS: predniSONE 50MG TABLET PO SCH (08:13)
[2018-08-14] MEDS: LISINOPRIL 5 MG TABLET PO SCH (08:16)
[2018-08-14] MEDS: INSULIN LISPRO 100 UNITS/ML, PEN SQ-INSULIN SCH ×3 (08:20→16:23)
[2018-08-14] MEDS: SODIUM CHLORIDE FLUSH 10ML SYR IVF SCH (08:21)
[2018-08-14] MEDS: ALBUTEROL SULFATE 2.5 MG/3 ML NPPB PRN (09:45)
[2018-08-14 12:40] VITALS: BP 154/75
[2018-08-14] MEDS ORDERED: BUDE10.2 INH (15:22)
[2018-08-14] MEDS ORDERED: ALBU90AE INH (15:22)
[2018-08-14] MEDS ORDERED: PRED50TA PO (15:22)
== END 2018-08-14 18:49 | disposition home health service (06) | DRG 335 ==
LOC: ED 10:10 → EDIP 11:47 → 4EST 20:12
PROVIDERS: ADMIT Internal Medicine; ATTEND Internal Medicine
PROC: 0DH63UZ Insertion of Feeding Device into Stomach, Percutaneous Approach (ICD-10-PCS; 2018-08-08)
PROC: 4A133B1 Monitoring of Arterial Pressure, Peripheral, Percutaneous Approach (ICD-10-PCS; 2018-08-08)
PROC: 0DNU0ZZ Release Omentum, Open Approach (ICD-10-PCS; principal; 2018-08-08 13:15)
DX: K56.2 Volvulus (principal); J96.01 Acute respiratory failure with hypoxia; J45.901 Unspecified asthma with (acute) exacerbation; J98.11 Atelectasis; K92.1 Melena; E11.9 Type 2 diabetes mellitus without complications; E78.5 Hyperlipidemia, unspecified; I10 Essential (primary) hypertension; K21.9 Gastro-esophageal reflux disease without esophagitis; K52.9 Noninfective gastroenteritis and colitis, unspecified; K66.0 Peritoneal adhesions (postprocedural) (postinfection); M47.816 Spondylosis without myelopathy or radiculopathy, lumbar region; N28.1 Cyst of kidney, acquired; K44.9 Diaphragmatic hernia without obstruction or gangrene; G89.29 Other chronic pain; R00.0 Tachycardia, unspecified; K57.30 Diverticulosis of large intestine without perforation or abscess without bleeding; Z79.82 Long term (current) use of aspirin; Z86.73 Personal history of transient ischemic attack (TIA), and cerebral infarction without residual deficits; Z90.710 Acquired absence of both cervix and uterus
CPT/HCPCS: 36415; 71045; 71275; 74177; 80048; 80053; 80061; 81001; 81003; 82040; 82962; 83036; 83605; 83690; 83735; 84439; 84443; 84484; 85025; 85610; 85730; 86850; 86900; 87040; 93005; 94640; 96365; 96375; 99285; B4087; G0378; J1100; J1170; J1650; J2250; J2270; J2405; J2704; J3010; J3480; J7613; Q9967; C9113; J0330; J1630; J1815; J2175; J2370; J2920; J3490; J7030; J7512

== ENCOUNTER 2019-10-14 19:19 | Emergency (ER) | payer MEDICARE ==
[~2019-10-14] VITALS: Ht 152.4 cm; Wt 83.0 kg
[~2019-10-14 19:19] MED LIST changes: +ALBU90AE INH; +BUDE10.2 INH; +PRED50TA PO
--- NOTE | 2019-10-14 19:25 | NUR ---
nO ANSWER X 1
[2019-10-14] MEDS ORDERED: DONE10TA7 PO (19:51)
--- NOTE | 2019-10-14 19:55 | NUR ---
PT BIB SON AFTER SHE WAS REPETITVE EARLIER TODAY AND ACTING CONFUSED. PT ALSO REPORTED SHE WAS HAVING INCREASED URINARY FREQUENCY. PT DOES NOT EXHIBIT UNILATERAL DEFICITS, NO DRIFT. PT ON MONITOR. DR. POSADA AT BEDSIDE.
[2019-10-14] MEDS ORDERED: SODIUM CHLORIDE FLUSH 10ML SYR IVF ONE (20:00)
--- NOTE | 2019-10-14 20:09 | NUR ---
report received from memo ness.
[2019-10-14 20:17] LABS: BASOPHILS # (AUTO) 0.02 x10^3/uL (0-0.1); BASOPHILS % (AUTO) 0 % (0-1); EOSINOPHILS # (AUTO) 0.16 x10^3/uL (0-0.4); EOSINOPHILS % (AUTO) 2 % (1-7); LYMPHOCYTES # (AUTO) 2.17 x10^3/uL (1-3.4); LYMPHOCYTES % (AUTO) 26 % (22-44); MD NO; MEAN CORPUSCULAR HEMOGLOBIN 31.8 pg (27.0-34.8); MEAN CORPUSCULAR HGB CONC 33.1 g/dL (32.4-35.8); MEAN PLATELET VOLUME 8.2 fL (7.4-10.4); MONOCYTES # (AUTO) 0.62 x10^3/uL (0.2-0.8); MONOCYTES % (AUTO) 7 % (2-9); NEUTROPHILS # (AUTO) 5.52 x10^3/uL (1.8-6.8); NEUTROPHILS % (AUTO) 65 % (42-75); PLATELET COUNT 271 x10^3/uL (130-400); RED BLOOD COUNT 4.96 x10^6/uL (3.82-5.3); RED CELL DISTRIBUTION WIDTH 14.1 % (9.6-15.2)
--- NOTE | 2019-10-14 20:26 | NUR ---
pt's straight cath'd using sterile technique. pt tolerated well. urine sample collected and this rn walked to lab at this time.
[2019-10-14 20:30] LABS: MICROSCOPIC NOT IND
[2019-10-14 20:46] LABS: ALANINE AMINOTRANSFERASE 25 U/L (12-78); ALBUMIN 3.7 g/dL (3.4-5.0); ANION GAP 6 mmol/L (5-15); CALCIUM 8.6 mg/dL (8.5-10.1); CHLORIDE 103 mmol/L (98-107); CREATININE 0.67 mg/dL (0.55-1.02)
[2019-10-14 20:50] LABS: ALKALINE PHOSPHATASE 112 U/L (45-117); BILIRUBIN,TOTAL 0.7 mg/dL (0.2-1.0); TOTAL PROTEIN 7.8 g/dL (6.4-8.2); TROPONIN I < 0.015 ng/mL (0.000-0.045)
--- NOTE | 2019-10-14 20:56 | NUR ---
report given to mali ness.
--- NOTE | 2019-10-14 20:58 | NUR ---
REPORT FROM JYOTSNA PATTERSON. PT RESTING WITH NO NEEDS AT THIS TIME. CALL LIGHT IN REACH.
--- NOTE | 2019-10-14 21:50 | NUR ---
PT BACK FROM CT. PT GIVEN A SNACK. PT WAITING FOR LABS. CALL LIGHT IN REACH
[2019-10-14 22:23] LABS: AMPHETAMINE SCREEN, URINE Negative (Negative); BARBITURATE SCREEN, URINE Negative (Negative); BENZODIAZEPINE SCREEN, URINE Negative (Negative); CANNABINOID SCREEN, URINE Negative (Negative); COCAINE SCREEN, URINE Negative (Negative); METHADONE SCREEN, URINE Negative (Negative); OPIATE SCREEN, URINE Negative (Negative)
[2019-10-14 22:35] VITALS: BP 129/82
--- NOTE | 2019-10-14 22:57 | NUR ---
ASSISTED PT TO BATHROOM. PIV REMOVED. WAITING FOR SON TO DISCHARGE PT. PT GETTING DRESSED
--- NOTE | 2019-10-14 23:21 | NUR ---
Caregiver given discharge instructions and they have confirmed that they understand the instructions. Patient taken out by wheelchair.
== END 2019-10-14 23:21 | disposition home or self-care (01) ==
LOC: ED 20:36
DX: R41.82 Altered mental status, unspecified (principal); R35.0 Frequency of micturition; R94.31 Abnormal electrocardiogram [ECG] [EKG]; I10 Essential (primary) hypertension
CPT/HCPCS: 36415; 70450; 80053; 80307; 81003; 82140; 83880; 84484; 85025; 93005; 99285

== ENCOUNTER 2020-09-20 17:27 | Emergency (ER) | payer MEDICARE ==
[~2020-09-20] VITALS: Ht 160 cm; Wt 92.7 kg
[~2020-09-20 17:27] MED LIST changes: +DONE10TA7 PO
[2020-09-20 18:03] LABS: MEAN CORPUSCULAR HEMOGLOBIN 30.7 pg (27.0-34.8); MEAN CORPUSCULAR HGB CONC 32.7 g/dL (32.4-35.8); MEAN PLATELET VOLUME 8.8 fL (7.4-10.4); PLATELET COUNT 285 x10^3/uL (130-400); RED CELL DISTRIBUTION WIDTH 14.7 % (9.6-15.2)
[2020-09-20 18:10] LABS: ALANINE AMINOTRANSFERASE 30 U/L (12-78); ALBUMIN 3.3 g/dL (3.4-5.0); ANION GAP 9 mmol/L (5-15); CALCIUM 8.9 mg/dL (8.5-10.1); CHLORIDE 97 mmol/L (98-107); CREATININE 1.31 mg/dL (0.55-1.02)
--- NOTE | 2020-09-20 18:10 | NUR ---
machine grainer: pt from lobby to room 36
[2020-09-20 18:14] LABS: ALKALINE PHOSPHATASE 99 U/L (45-117); CREATINE KINASE, TOTAL 555 U/L (26-192); TOTAL PROTEIN 7.3 g/dL (6.4-8.2); TROPONIN I < 0.015 ng/mL (0.000-0.045)
--- NOTE | 2020-09-20 18:15 | NUR ---
MD FLORES BEDSIDE
--- NOTE | 2020-09-20 18:23 | NUR ---
PT BIB SON WHO FOUND HER ON HER FLOOR. PT STATES SHE FELL 2 DAYS AGO IN HER HOME AND COULDN'T GET UP. PT DENIES TRAUMA OR PAIN, SIMPLY STATES "I WAS TOO WEAK" TO GET UP. PT DOESN'T REMEMBER THE FALL SO IS UNSURE WHAT CAUSED IT. PT DENIES CP, SOB, NV, OR HEADACHE. ONLY PHYSICAL COMPLAINT AT THIS TIME IS THIRST. PT STATES SHE HAD WATER WITHIN REACH THAT SHE WAS ABLE TO DRINK.
--- NOTE | 2020-09-20 18:27 | NUR ---
PT GIVEN PO WATER WITH MD APPROVAL
[2020-09-20] MEDS ORDERED: SODIUM CHLORIDE FLUSH 10ML SYR IVF ONE (18:30)
[2020-09-20] MEDS ORDERED: SODIUM CHLORIDE 0.9% 1,000ML IVBOLUS ONE ×2 (18:30→19:30)
[2020-09-20 18:45] LABS: MD YES
[2020-09-20 18:47] LABS: LYMPH#(MANUAL) 1.01 x10^3/uL (1-3.4); LYMPHS% (MANUAL) 7 % (22-44); MONOS#(MANUAL) 0.72 x10^3/uL (0.3-2.7); MONOS% (MANUAL) 5 % (2-9); SEG#(MANUAL) 12.67 x10^3/uL (1.8-6.8); SEGS% (MANUAL) 88 % (42-75)
[2020-09-20 18:50] LABS: <PLATELET ESTIMATE> ADEQUATE; <PLT MORPHOLOGY> NORMAL PLT MORPH; <RBC MORPHOLOGY> NORMAL
--- NOTE | 2020-09-20 20:07 | NUR ---
PT TAKEN TO CT SCAN.
[2020-09-20 21:22] LABS: MICROSCOPIC AUTO
--- NOTE | 2020-09-20 21:28 | NUR ---
PT AND FAMILY UPDATED ON SITUATION. MD FOR RECHECK.
[2020-09-20] MEDS ORDERED: INSULIN REGULAR 100 UNITS/ML, 3ML VIAL SQ-INSULIN ONE (22:00)
[2020-09-20] MEDS ORDERED: INSULIN LISPRO SINGLE DOSE, ER SQ-INSULIN ONE (22:01)
[2020-09-20 22:10] VITALS: BP 149/80
== END 2020-09-20 22:42 | disposition home or self-care (01) ==
LOC: ED 17:57
DX: E86.0 Dehydration (principal); R73.9 Hyperglycemia, unspecified; I11.9 Hypertensive heart disease without heart failure; R00.0 Tachycardia, unspecified; R53.1 Weakness; R51.9 Headache, unspecified; R07.9 Chest pain, unspecified
CPT/HCPCS: 36415; 70450; 71045; 80053; 81001; 82550; 82962; 83690; 84484; 85025; 93005; 96360; 96361; 99285; J7030